=== PATIENT | female | born 1990 | race Caucasian/White ===

== ENCOUNTER 2024-03-24 12:21 | Outpatient (REF) | payer SELFPAY ==
--- NOTE | 2024-03-24 10:00 | PAPFT_PTH ---
PATIENT: Gillian Schultz LOC: [facility] U#:[id number] AGE/SX: 33/F ROOM: RE03/24/[address]: SHAWNA: 1990 BED: DIS: 03/24/2024 SPEC #: [id number] RECD: 03/24/24 15:28 STATUS: AARON JEAN #: [id number] ANA: 03/24/24 10:[address]: Itzel Elias DEPT: [facility] Cytology RECD BY: Marelne Estrada Tissues: 1 - CX/ENDOCX FOR PAP SMEARS Procedures: PAP THIN PREP/[facility] Screening HPV DNA PROBE Comments: [id number] (HPV 16 & 18/45)
== END 2024-03-24 12:22 | disposition home or self-care (01) ==
LOC: NCHCN 12:21
PROVIDERS: PCP Family Medicine; Visit Provider Family Medicine
DX: Z12.4 Encounter for screening for malignant neoplasm of cervix (principal)
CPT/HCPCS: 88142; 87624